=== PATIENT | male | born 1990 | race Caucasian/White ===

== ENCOUNTER 2019-05-08 11:15 | Emergency (ER) | payer OTHER, BC ==
--- NOTE | 2019-05-08 12:00 | EDM.PDOC ---
ED HPI GENERAL MEDICAL PROBLEM - General Chief Complaint: Upper Extremity Injury/Pain Stated Complaint: NEEDS STICHES BROKEN FINGER Time Seen by Provider: 05/08/19 11:47 Source of Information: Reports: Patient History Limitations: Reports: No Limitations - History of Present Illness INITIAL COMMENTS - FREE TEXT/NARRATIVE: Patient is a 28-year-old male who presents to the ED with a crush injury to the distal phalanx of the left fifth finger. 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 Both items are extremely heavy. Patient was evaluated in [place] and had x-rays obtained indicating tuft fracture. Due to the proximity of laceration and fracture patient has a open fracture. Pain is localized and controlled. Bleeding has subsided with application of dressing. Sensation is intact. He is able to move his finger. Tetanus status is up to date. He denies any injury to remaining fingers, hand, and or wrist. Left Finger-Little Pain Score (Numeric/FACES): 4 - Related Data Allergies Allergy/AdvReac Type Severity Reaction Status Date / Time No Known Allergies Allergy Verified 05/08/19 11:37 Home Meds: Home Meds cephALEXin [Keflex] 500 mg PO Q8H #30 cap 05/08/19 [Rx] Past Medical History - Past Health History Medical/Surgical History: Denies Medical/Surgical History Musculoskeletal History: Reports: Fracture Social & Family History - Tobacco Use Smoking Status *Q: Never Smoker - Caffeine Use Caffeine Use: Reports: Tea - Recreational Drug Use Recreational Drug Use: No Review of Systems - Review of Systems Review Of Systems: ROS reveals no pertinent complaints other than HPI. ED EXAM, GENERAL - Physical Exam Exam: See Below Exam Limited By: No Limitations General Appearance: Alert, WD/WN, No Apparent Distress Ears: Hearing Grossly Normal Nose: Normal Inspection Throat/Mouth: Normal Voice, No Airway Compromise Neck: Normal Inspection Respiratory/Chest: No Respiratory Distress, No Accessory Muscle Use Cardiovascular: Normal Peripheral Pulses, Regular Rate, Rhythm Peripheral Pulses: 2+: Radial (L) Extremities: Other (Saturated dressing noted to the distal phalanx of the left fifth finger. Unable to remove. Pain with palpation. Able to flex and extend the DIP/PIP, and also MCP. No pain with palpation of the remaining fingers and/ or hand/wrist. No sensory changes noted.) Neurological: Alert, Oriented, CN II-XII Intact, Normal Cognition, No Motor/ Sensory Deficits Psychiatric: Normal Affect, Normal Mood Skin Exam: Warm, Dry, Normal Color ED TRAUMA EXTREMITY PROCEDURES - Laceration/Wound Repair Left Digit - 5th (Baby) Lac/Wound Length In cm: 2.5 Appearance: Subcutaneous, Clean Distal NVT: Neuro & Vascular Intact, No Tendon Injury Anesthetic Type: Digital Local Anesthesia - Lidocaine (Xylocaine): 1% Plain Local Anesthetic Volume: Other (8 mls) Skin Prep: Chlorhexidine (Hibiciens), Saline, Sterile Drape Exploration/Debridement/Repair: Wound Explored, In a Bloodless Field, Explored to Base, No Foreign Material Found Closed With: Sutures Suture Size: 4-0 # of Sutures: 4 Suture Type: Prolene, Interrupted, Simple Drain Placement: No Sterile Dressing Applied: Nurse Tetanus Status Addressed: Yes Complications: No Course - Vital Signs Last Recorded V/S: Last Vital Signs Temp 98.8 F 05/08/19 11:34 Pulse 105 H 05/08/19 11:34 Resp 16 05/08/19 11:34 BP 165/105 H 05/08/19 11:34 Pulse Ox 100 05/08/19 11:34 - Orders/Labs/Meds Meds: Medications Discontinued Medications Generic Name Dose Route Start Last Admin Trade Name Dimitri PRN Reason Stop Dose Admin Cefazolin Sodium 1 gm 05/08/19 12:28 05/08/19 13:21 Ancef IM 05/08/19 12:29 1 gm ONETIME ONE Administration Lidocaine HCl 20 ml 05/08/19 12:17 05/08/19 12:22 Xylocaine 1% INJECT 05/08/19 12:18 Not Given ONETIME ONE Lidocaine HCl 50 ml 05/08/19 12:30 05/08/19 12:23 Xylocaine 1% INJECT 05/08/19 12:31 50 ml ASDIRECTED ONE Administration Lidocaine HCl Confirm 05/08/19 12:20 05/08/19 12:23 Xylocaine 1% Administered 05/08/19 12:21 Not Given Dose 50 ml .ROUTE .STK-MED ONE - Re-Assessments/Exams Free Text/Narrative Re-Assessment/Exam: Unable to remove dressing since dried blood present. Will so with the affected finger and chlorhexidine and an attempt to remove at that time. Patient has a CD with x-rays from finger on it. I have asked radiology to place the images on our PACS system. We will go ahead and try to remove the dressing when able and evaluated for complexity of the laceration. 05/08/19 12:20 dressing removed. Patient has a laceration that involves the lateral border of the nail bed through the nailbed with avulsion of the proximal nail. Sensory still intact. I believe at this point we may be able to place the nail back in its anatomical position with sutures in place. I did review the x-rays and patient does have a distal phalanx tuft fracture. He has an open fracture due to the location of the laceration. Thus Ancef 1 g has been ordered. Upon closure of the laceration patient will be placed in a splint with dressing and a course of antibiotics Keflex 500 mg 3 times a day for 10 days. He will need to be seen by orthopedic surgeon of his choice in the next 3-5 days for reevaluation. Contact information for [facility] has been provided. 05/08/19 12: 35 Nail brought back into proper anatomical position with sutures. Tube gauze with non adherent dressing placed per nursing staff along with aluminum splint. Return precautions discussed with patient. He had no further questions or concerns. Departure - Departure Time of Disposition: 12:53 Disposition: Home, Self-Care 01 Clinical Impression: Open fracture of tuft of distal phalanx of finger, Crushing injury of finger, left Nailbed laceration, finger Qualifiers: Encounter type: initial encounter Qualified Code(s): S61.319A - Laceration without foreign body of unspecified finger with damage to nail, initial encounter - Discharge Information Prescriptions: cephALEXin [Keflex] 500 mg PO Q8H #30 cap Instructions: Stitches, [place], or Adhesive Wound Closure, Nail Bed Laceration , Cast or Splint Care, Adult Referrals: Jong Montenegro MD [Physician] - Forms: ED Department Discharge, ED Return to Work/School Form Additional Instructions: Cleanse site twice daily with soap and water, pat dry, reapply triple antibiotic ointment. Apply new non adherent dressing. Must utilize aluminum splint until instructed not by orthopedic surgeon. Dr. Delgado with [facility] office will call you with appt time. May return to work tomorrow light duty. Keep dressing clean. Sutures will need to come out in 10 days. May return to [facility] to have them removed. Keep Aluminum splint in place until instructed not by orthopedic surgeon. Take the full course of antibiotic as instructed. Utilize ice to the affected area 3 times daily, 20 minutes in duration, do not apply directly on the skin. Elevate when able to reduce any swelling and pain. May utilize tylenol and ibuprofen in alternating fashion for pain. Please return to the E.D. if you develop any new or worsening symptoms as discussed.
[2019-05-08] MEDS ORDERED: Lidocaine 1% 20 ML MDV INJECT ONE (12:17)
[2019-05-08] MEDS ORDERED: Lidocaine 1% 50 ML MDV ONE (12:20)
[2019-05-08] MEDS ORDERED: ceFAZolin 1 GM Vial IM ONE (12:28)
[2019-05-08] MEDS ORDERED: Lidocaine 1% 50 ML MDV INJECT ONE (12:30)
== END 2019-05-08 13:27 | disposition home or self-care (01) ==
LOC: JD.ED 11:15
DX: S67.197A Crushing injury of left little finger, initial encounter (principal); S62.637B Displaced fracture of distal phalanx of left little finger, initial encounter for open fracture; W23.0XXA Caught, crushed, jammed, or pinched between moving objects, initial encounter
CPT/HCPCS: 12001; 96372; 99283; J0690; J2001; 12041